=== PATIENT | male | born 1965 | race Asian ===

== ENCOUNTER 2018-03-05 18:20 | Inpatient (IN) | payer OTHER | END 2018-03-07 16:30 | disposition home or self-care (01) | LOC: ED 18:20 → DU 21:13 → ED 18:20 → DU 03-07 16:30 → ED 18:20 → DU 23:11 → ED 18:20 → DU 21:13 → ED 18:20 → DU 21:13 | DX: K92.2 Gastrointestinal hemorrhage, unspecified (principal); D62 Acute posthemorrhagic anemia; E78.00 Pure hypercholesterolemia, unspecified; E83.51 Hypocalcemia; Z68.28 Body mass index [BMI] 28.0-28.9, adult; Z87.891 Personal history of nicotine dependence ==